=== PATIENT | female | born 1960 | race American Indian/Alaskan Native ===

== ENCOUNTER 2016-11-17 14:08 | Emergency (ER) | payer OTHER ==
[2016-11-17 14:18] VITALS: BP 121/72; PULSE 82; RESP 20; TEMP 98.4; O2SAT 98
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
== END 2016-11-17 15:14 | disposition home or self-care (01) ==
LOC: C.ER 14:08
DX: Z04.8 Encounter for examination and observation for other specified reasons (principal)